=== PATIENT | female | born 1995 | race Caucasian/White ===

== ENCOUNTER 2017-02-01 11:10 | Emergency (ER) | payer OTHER ==
[~2017-02-01] VITALS: Ht 162.6 cm; Wt 62.4 kg
[2017-02-01 11:26] VITALS: Ht 162.6 cm; Wt 62.4 kg
[2017-02-01] MEDS ORDERED: ACETAMINOPHEN 500 MG TAB PO STA (12:16)
[2017-02-01] MEDS ORDERED: BCPILLS PO (12:25)
[2017-02-01] MEDS ORDERED: KETOROLAC TROMETHAMINE 30 MG/ML VIAL IV STA (12:58)
[2017-02-01] MEDS ORDERED: ONDANSETRON INJ 2 MG/ML 2 ML VIAL IV STA (12:58)
[2017-02-01] MEDS ORDERED: SODIUM CHLORIDE 0.9% 1000ML 2,000 ML IV STA (12:58)
[2017-02-01 13:34] LABS: BASO % 0.3 %; BASO ABS # 0.03 K/uL (0-0.2); COMPLETE YES; EOS % 0.1 %; HEMATOCRIT 37.3 % (37-47); IG% 0.5 %; LYMPH % 9.2 %; LYMPH ABS # 0.98 K/uL (1.2-3.4); MEAN CELL VOLUME 91.2 fL (80-100); MEAN CORPUSCULAR HEMOGLOBIN 30.8 pg (25-34); MEAN CORPUSCULAR HGB CONC 33.8 g/dl (32-36); MEAN PLATELET VOLUME 9.1 fL (7.4-10.4); MONO % 7.5 %; NEUT % 82.4 %; PLATELET COUNT 298 K/uL (130-400); RED BLOOD COUNT 4.09 M/uL (4.2-5.4); WHITE BLOOD COUNT 10.65 K/uL (4.8-10.8)
--- NOTE | 2017-02-01 13:50 | DIAGNOSTIC IMAGING REPORT ---
CHEST ONE VIEW PORTABLE CLINICAL HISTORY: cough dyspnea COMPARISON STUDY: No previous studies for comparison. FINDINGS: The bones soft tissues and hemidiaphragms are normal. The cardiomediastinal silhouette is normal. The lungs are clear. The pulmonary vasculature is normal. IMPRESSION: Negative chest. Electronically signed by: Paolo Castillo M.D. 02/01/2017 1:49 PM Dictated Date/Time: 02/01/2017 1:49 PM
[2017-02-01 13:55] LABS: BUN/CREATININE RATIO 11.9 (10-20); CALCIUM 8.5 mg/dl (8.5-10.1); CREATININE 0.75 mg/dl (0.60-1.20); POTASSIUM 3.8 mmol/L (3.5-5.1)
[2017-02-01 13:58] LABS: ALB/GLOB RATIO 1.1 (0.9-2)
[2017-02-01 14:16] VITALS: TEMP 37.6
[2017-02-01] MEDS ORDERED: ONDA4TAB10 SL (16:51)
--- NOTE | 2017-02-01 16:52 | EMERGENCY ROOM VISIT NOTE ---
History Report prepared by Marikaibnoelle: Jean Carlos Mims Under the Supervision of: Dr. Zac Ferro D.O. First contact with patient: 12:50 Chief Complaint: ILLNESS Stated Complaint: DIARRHEA - COUGH - FEVER - THROWING UP - BODY ACHE History of Present Illness The patient is a 21 year old female who presents to the Emergency Room with complaints of persistent diarrhea for the past four days. The diarrhea started the day the patient returned to the from [place] four days ago. She has not had any diarrhea so far this morning. 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 She also notes vomiting and fever that stared last night. The patient has been able to keep water down in the ED thus far. The patient was given Tylenol upon arrival to the ED per nursing protocol. She also complains of a cough and global body aches for several days. She denies abdominal pain or unusual rashes. The patient has a contact that was on the trip that is vomiting but appears to be less ill than the patient. Source of History: patient Onset: four days ago Position: other (GI) Quality: other (diarrhea) Timing: other (persistent) Associated Symptoms: + cough, + fevers, + nausea, + vomiting, No abdominal pain, No rash Review of Systems See HPI for pertinent positives & negatives. A total of 10 systems reviewed and were otherwise negative. Past Medical & Surgical Medical Problems: (1) No known health problems Family History No pertinent family history Social History Smoking Status: Never Smoker Housing Status: lives with roommate Occupation Status: [employer] student Current/Historical Medications Scheduled Control Pills ( Control Pills), 1 TAB PO DAILY Ondasetron Odt (Zofran Odt), 4 MG SL Q6H Allergies Coded Allergies: No Known Allergies (Unverified , 02/01/17) Physical Exam Vital Signs Date Time Temp Pulse Resp B/P Pulse Ox O2 Delivery O2 Flow Rate FiO2 02/01/17 14:16 37.6 106/51 02/01/17 12:26 39.2 02/01/17 11:26 39.2 124 18 122/80 95 Room Air Physical Exam CONSTITUTIONAL/VITAL SIGNS: Reviewed / noted above. GENERAL: Non-toxic in appearance. INTEGUMENTARY: Warm, dry, and [place]. HEAD: Normocephalic. EYES: without scleral icterus or trauma. ENT/OROPHARYNX: clear and moist. LYMPHADENOPATHY/NECK: Is supple without lymphadenopathy or meningismus. RESPIRATORY: Lungs clear and equal. CARDIOVASCULAR: Tachycardic, regular rhythm. GI/ABDOMEN: Soft and nontender. No organomegaly or pulsatile mass. No rebound or guarding. Normal bowel sounds. EXTREMITIES: Warm and well perfused. BACK: No CVA tenderness. NEUROLOGICAL: Intact without focal deficits. PSYCHIATRIC: normal affect. MUSCULOSKELETAL: Normally developed with good muscle tone. Medical Decision & Procedures ER Provider Diagnostic Interpretation: X ray results and stated below per my interpretation and radiology interpretation. CHEST ONE VIEW PORTABLE CLINICAL HISTORY: cough dyspnea COMPARISON STUDY: No previous studies for comparison. FINDINGS: The bones soft tissues and hemidiaphragms are normal. The cardiomediastinal silhouette is normal. The lungs are clear. The pulmonary vasculature is normal. IMPRESSION: Negative chest. Electronically signed by: Paolo Castillo M.D. 02/01/2017 1:49 PM Dictated Date/Time: 02/01/2017 1:49 PM Laboratory Results 02/01/17 13:25 Red Blood Count 4.09, Mean Corpuscular Volume 91.2, Mean Corpuscular Hemoglobin 30.8, Mean Corpuscular Hemoglobin Concent 33.8, Mean Platelet Volume 9.1, Neutrophils (%) (Auto) 82.4, Lymphocytes (%) (Auto) 9.2, Monocytes (%) (Auto) 7.5, Eosinophils (%) (Auto) 0.1, Basophils (%) (Auto) 0.3, Neutrophils # (Auto) 8.78, Lymphocytes # (Auto) 0.98, Monocytes # (Auto) 0.80, Eosinophils # (Auto) 0.01, Basophils # (Auto) 0.03 02/01/17 13:25 Test 02/01/17 13:25 02/01/17 13:30 White Blood Count 10.65 K/uL (4.8-10.8) Red Blood Count 4.09 M/uL (4.2-5.4) Hemoglobin 12.6 g/dL (12.0-16.0) Hematocrit 37.3 % (37-47) Mean Corpuscular Volume 91.2 fL (80-100) Mean Corpuscular Hemoglobin 30.8 pg (25-34) Mean Corpuscular Hemoglobin Concent 33.8 g/dl (32-36) Platelet Count 298 K/uL (130-400) Mean Platelet Volume 9.1 fL (7.4-10.4) Neutrophils (%) (Auto) 82.4 % Lymphocytes (%) (Auto) 9.2 % Monocytes (%) (Auto) 7.5 % Eosinophils (%) (Auto) 0.1 % Basophils (%) (Auto) 0.3 % Neutrophils # (Auto) 8.78 K/uL (1.4-6.5) Lymphocytes # (Auto) 0.98 K/uL (1.2-3.4) Monocytes # (Auto) 0.80 K/uL (0.11-0.59) Eosinophils # (Auto) 0.01 K/uL (0-0.5) Basophils # (Auto) 0.03 K/uL (0-0.2) RDW Standard Deviation 41.8 fL (36.4-46.3) RDW Coefficient of Variation 12.5 % (11.5-14.5) Immature Granulocyte % (Auto) 0.5 % Immature Granulocyte # (Auto) 0.05 K/uL (0.00-0.02) Anion Gap 10.0 mmol/L (3-11) Est Creatinine Clear Calc Drug Dose 101.7 ml/min Estimated GFR () 131.1 Estimated GFR (Non- 113.1 BUN/Creatinine Ratio 11.9 (10-20) Calcium Level 8.5 mg/dl (8.5-10.1) Total Bilirubin 0.6 mg/dl (0.2-1) Aspartate Amino Transf (AST/SGOT) 19 U/L (15-37) Alanine Aminotransferase (ALT/SGPT) 21 U/L (12-78) Alkaline Phosphatase 83 U/L (45-117) Total Protein 7.6 gm/dl (6.4-8.2) Albumin 3.9 gm/dl (3.4-5.0) Globulin 3.7 gm/dl (2.5-4.0) Albumin/Globulin Ratio 1.1 (0.9-2) Influenza Type A Antigen Neg for Influ A (NEG) Influenza Type B Antigen Neg for Influ B (NEG) Laboratory results as stated above per my review. Medications Administered Medications (Trade) Dose Ordered Sig/Patty Route Start Time Stop Time Status Last Admin Dose Admin Acetaminophen 1000 mg 1,000 mg NOW STAT PO 02/01/17 12:16 02/01/17 12:18 DC 02/01/17 12:27 1,000 MG Sodium Chloride (Nss 1000ml) 2,000 ml @ 999 mls/hr Q2H1M STAT IV 02/01/17 12:58 02/01/17 14:58 DC 02/01/17 13:21 999 MLS/HR Ketorolac Tromethamine (Toradol Inj) 30 mg NOW STAT IV 02/01/17 12:58 02/01/17 13:02 DC 02/01/17 13:21 30 MG Ondansetron HCl (Zofran Inj) 4 mg NOW STAT IV 02/01/17 12:58 02/01/17 13:02 DC 02/01/17 13:20 4 MG ED Course 1252: Previous medical records were reviewed. The patient was evaluated in room C6. A complete history and physical examination was performed. 1258: Zofran 4 mg IV, Toradol 30 mg IV, NSS 2000 ml @ 999 mls/hr. 1650: Reassessed the patient. Discussed the findings with her. She verbalized understanding and agreement. The patient is ready for discharge. Medical Decision Differential diagnosis: Etiologies such as gastroenteritis, food borne illness, infections, appendicitis , diverticulitis, inflammatory bowel disease, obstruction, GI bleed, biliary pathology, as well as others were entertained. Is a 21-year-old female who presents to the ED with a chief complaint of diarrhea as well as a cough, fevers and chills and achiness. The patient came back from [place] 4 days ago on a brief trip. She states that she primarily has nausea and vomiting and diarrhea and has 1 sick contact who was on the trip with her. Her physical exam revealed a temperature of 39.2. She was tachycardic with a heart rate of 129. Her exam was otherwise unremarkable. She did not have any focal tenderness on abdominal exam. The lungs were clear. She has no rashes. Chest x-ray was negative for acute disease. CBC and complete metabolic panel are unremarkable. A chest x-ray was negative for acute disease. The patient was told results the test per she was hydrated with IV fluids. She was given IV Toradol and IV Zofran. She was also given by mouth Tylenol. She was feeling improved. She was told the results. She is felt to be stable for discharge. She was unable to give a stool sample. Impression Primary Impression: Fever Additional Impression: Nausea vomiting and diarrhea Scribe Attestation The scribe's documentation has been prepared under my direction and personally reviewed by me in its entirety. I confirm that the note above accurately reflects all work, treatment, procedures, and medical decision making performed by me. Departure Information Dispostion Home / Self-Care Prescriptions Ondasetron Odt (ZOFRAN ODT) 4 Mg Tab 4 MG SL Q6H for Nausea, #15 TAB Prov: Zac Ferro D.O. 02/01/17 Referrals No Doctor, Assigned (PCP) Forms HOME CARE DOCUMENTATION FORM, IMPORTANT VISIT INFORMATION, WORK / SCHOOL INSTRUCTIONS Patient Instructions My [facility] Additional Instructions Follow-up with your doctor for further care and evaluation in 1-2 days. Return to the emergency department for worsening or new symptoms or any concerns. You have been examined and treated today on an emergency basis only. This is not a substitute for, or an effort to provide, complete comprehensive medical care. It is impossible to recognize and treat all injuries or illnesses in a single emergency department visit. It is therefore important that you follow up closely with your doctor. Call as soon as possible for an appointment. Zofran: Allow one tablet to dissolve under the tongue every 6 hours as needed for nausea or vomiting. Take Tylenol as needed for fever. Problem Qualifiers
[2017-02-01 17:10] VITALS: BP 102/68; PULSE 77; O2SAT 95
== END 2017-02-01 17:18 | disposition home or self-care (01) ==
LOC: C.EDB 11:12 → C.EDC 17:18
DX: R19.7 Diarrhea, unspecified (principal); R11.2 Nausea with vomiting, unspecified; R50.9 Fever, unspecified